=== PATIENT | female | born 1980 ===

== ENCOUNTER → 2021-03-10 08:00 | Outpatient (CLI) | payer OTHER ==
[~2021-03-10 08:00] MED LIST: INSULIN N SQ; INSULIN R SQ; LIPIT PO; NOVOLIN N100 UNITS/ SQ; PROGESTERONE IM; SYNTHROID50 MCG PO; SYNTHROID75 MCG PO; TL-SELECT DHA1 EACH PO; [UNRECOGNIZED DRUG - OTHER] PO
== END | disposition home or self-care (01) ==
LOC: LAB 08:00 → SURH 03-15 11:00 → EDSTATUS 03-15 11:00
PROVIDERS: ATTEND Obstetrics & Gynecology Maternal & Fetal Medicine
DX: D25.9 Leiomyoma of uterus, unspecified (principal); Z03.818 Encounter for observation for suspected exposure to other biological agents ruled out

== ENCOUNTER → 2023-04-12 06:00 | Outpatient (CLI) | payer OTHER ==
[~2023-04-12] VITALS: Ht 154.9 cm; Wt 77.1 kg
[~2023-04-12 06:00] MED LIST changes: +OZEM
[2023-04-12 12:31] LABS: INR 1.02; PARTIAL THROMBOPLASTIN TIME 25.1 SECONDS (22.0-34.0); PROTHROMBIN TIME 10.7 SECONDS (9.0-11.5)
[2023-04-12 12:38] LABS: ALBUMIN 3.5 gm/dL (3.4-5.0); BILIRUBIN TOTAL 0.34 mg/dL (0.3-1.2); CALCIUM 8.5 mg/dL (8.5-10.1); CREATININE SERUM 0.66 mg/dL (0.55-1.02); GFR 96.85; GLOBULINA 3.9 G/DL (2.4-3.5); HEMATOCRIT 28.3 % (36.0-45.00); HEMOGLOBIN 8.9 g/dL (12.0-15.00); MEAN CELL VOLUME 69.3 fL (80.00-100.00); MEAN CORPUSCULAR HEMOGLOBIN 21.7 pg (27.00-32.0); MEAN CORPUSCULAR HGB CONC 31.6 g/dl (32.0-36.0); PLATELET COUNT 281 K/uL (150-450); POTASSIUM 4.75 mEq/L (3.5-5.1); RED BLOOD COUNT 4.09 M/uL (4.00-6.00); RED CELL DISTRIBUTION WIDTH 19.1 % (11.5-14.5); TOTAL PROTEIN 7.4 gm/dL (6.4-8.2)
== END | disposition home or self-care (01) ==
LOC: LAB 06:00 → EDSTATUS 04-17 08:45 → SURG 04-17 08:45
PROVIDERS: ATTEND Obstetrics & Gynecology Maternal & Fetal Medicine
DX: D25.9 Leiomyoma of uterus, unspecified (principal); D64.89 Other specified anemias; Z20.822 Contact with and (suspected) exposure to COVID-19